=== PATIENT | male | born 1980 | race Caucasian/White ===

== ENCOUNTER 2019-08-04 06:56 | Emergency (ER) | payer MEDICAID ==
[~2019-08-04] VITALS: Ht 167.6 cm; Wt 63.0 kg
[2019-08-04] MEDS ORDERED: OXYCODONE HCL/ACETAMINOPHEN 5/325MG TABLET PO ONE (07:45)
[2019-08-04] MEDS ORDERED: TETANUS, DIPHTHERIA, PERTUSSIS VAC/PF 0.5ML (>7YR OLD) IM ONE (08:15)
[2019-08-04] MEDS ORDERED: LIDOCAINE 1%/EPI 1:100,000 10 ML VIAL IJ ONE (08:15)
[2019-08-04] MEDS ORDERED: LIDOCAINE HCL/EPINEPHRINE 1%-EPI 1:100,000 20 ML VIAL ONE (08:18)
[2019-08-04] MEDS ORDERED: MECLIZINE 25MG TABLET PO ONE (11:15)
[2019-08-04 11:33] VITALS: BP 110/60
== END 2019-08-04 11:37 | disposition home or self-care (01) ==
LOC: ER 07:47
DX: S01.01XA Laceration without foreign body of scalp, initial encounter (principal); S52.92XA Unspecified fracture of left forearm, initial encounter for closed fracture; S06.0X9A Concussion with loss of consciousness of unspecified duration, initial encounter; I10 Essential (primary) hypertension; Y08.89XA Assault by other specified means, initial encounter; Y93.9 Activity, unspecified; Y92.9 Unspecified place or not applicable
CPT/HCPCS: 12004; 29125; 70450; 73090; 90715; 96372; 99284; J3490; J8597; A4565

== ENCOUNTER 2019-08-14 12:25 | Emergency (ER) | payer MEDICAID ==
[~2019-08-14] VITALS: Ht 162.6 cm; Wt 56.0 kg
[2019-08-14] MEDS ORDERED: CEPHALEXIN 250MG CAPSULE PO ONE (17:00)
[2019-08-14] MEDS ORDERED: HYDROCODONE/ACETAMINOPHEN 5/325MG TABLET PO ONE (17:00)
[2019-08-14 18:24] VITALS: BP 126/78
== END 2019-08-14 18:33 | disposition home or self-care (01) ==
LOC: ER 12:25
DX: S52.92XG Unspecified fracture of left forearm, subsequent encounter for closed fracture with delayed healing (principal); S52.202G Unspecified fracture of shaft of left ulna, subsequent encounter for closed fracture with delayed healing; Y08.89XD Assault by other specified means, subsequent encounter
CPT/HCPCS: 29125; 99283